=== PATIENT | female | born 1940 | race Caucasian/White ===

== ENCOUNTER 2016-11-13 07:14 | Day surgery (SDC) | payer OTHER ==
--- NOTE | 2016-11-12 11:39 | PREOPHP ---
DATE OF ADMISSION: 11/13/2016 HISTORY OF PRESENT ILLNESS: This 76-year-old patient is admitted for elective cataract surgery of the right eye. The patient has had decreased vision for approximately 2 months time with no prior history of eye disease or injury. The patient does have a positive systemic history of hypertension and has been treated with lisinopril and aspirin (discontinued prior to surgery). ALLERGIES: NO KNOWN ALLERGIES. PHYSICAL EXAMINATION: HEENT: Visual acuity with correction is 20/80 in each eye. 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 Both eyes have evidence of anterior cortical and nucleus sclerotic cataracts with vacuolar changes. Applanation tonometry is 11 mmHg in both eyes. Examination of the retina is within normal limits. DIAGNOSIS: Cataract right eye. PLAN: Cataract extraction with lens implant right eye. The risks and alternatives of the surgery have been discussed with the patient, as well as the hope for improvement of visual acuity leading to greater ability to perform activities of daily living. The patient understands this and agrees to proceed with surgery. Dictated By: Moises Mata MD /tala/asmita /Document#: [id number]
[2016-11-13] VITALS (9 sets, daily range): BP systolic 118–150; BP diastolic 59–70; PULSE 55–65; RESP 13–22; Ht 142.2 cm; Wt 62.0 kg
[~2016-11-13] VITALS: Ht 142.2 cm; Wt 62.0 kg
[~2016-11-13 07:14] MED LIST: ACET1TAB40 PO; ASPI-664 PO; CIPROFLOXACIN 0.3% 2.5 ML OPH OPER SCH; CYCLOPENTOLATE/PHENYLEPH 2 ML OPH OPER SCH; DICLOFENAC 0.1% 2.5 ML OPH OPER SCH; DOCU-159 PO; GABA100C14 PO; IBUP-1542 PO; LISI-313 PO; OMEP40CA6 PO; TROPICAMIDE 1% 3ML OPH OPER SCH
[2016-11-13] MEDS ORDERED: ERGO500037 PO (08:09)
[2016-11-13] MEDS ORDERED: AMO500 PO (08:09)
[2016-11-13] MEDS ORDERED: CARBACHOL 0.01% 1.5 ML OPH INJ IO ONE (09:00)
[2016-11-13] MEDS ORDERED: LIDOCAINE 4% (MPF) 5 ML INJ ONE ×2 (09:09→09:16)
[2016-11-13] MEDS ORDERED: CEFAZOLIN 1 GM INJ ONE (09:09)
[2016-11-13] MEDS ORDERED: EPINEPHrine 1 MG INJ ONE (09:10)
[2016-11-13] MEDS ORDERED: NA HYALURONATE/CHONDROITIN 0.5 ML SYG ONE (09:10)
[2016-11-13] MEDS ORDERED: GENTAMICIN 80 MG INJ ONE (09:10)
[2016-11-13] MEDS ORDERED: CARBACHOL 0.01% 1.5 ML OPH INJ ONE (09:10)
[2016-11-13] MEDS ORDERED: DEXAMETHASONE 4 MG/ML 1 ML INJ ONE (09:10)
[2016-11-13] MEDS ORDERED: NA HYALURONATE/CHONDROITIN 0.5 ML SYG RIGHT EYE ONE (09:20)
[2016-11-13] MEDS ORDERED: CEFAZOLIN 1 GM INJ INJ ONE (09:20)
[2016-11-13] MEDS ORDERED: DEXAMETHASONE 4 MG/ML 1 ML INJ INJ ONE (09:20)
[2016-11-13] MEDS ORDERED: PROPOFOL 20 ML ONE (09:26)
--- NOTE | 2016-11-13 10:04 | SIPON ---
Date/Time of Note Date/Time of Note DATE: 11/13/16 TIME: 10:03 Operative Report Preoperative Diagnosis cataract od Postoperative Diagnosis same Operation/Procedure Performed cataract surgery od Surgeon: KAREN ZUÑIGA MD Anesthesia Type: MAC Estimated Blood Loss: none Transfusion Required: no Specimen: none Grafts/Implants posterior chamber lens implant KAREN ZUÑIGA MD Nov 13, 2016 10:04
[2016-11-13] MEDS ORDERED: HYDROmorphONE (0.2 MG/ML) 10ML SYG IV ONE (10:23)
[2016-11-13] MEDS ORDERED: ONDANSETRON 4 MG INJ IV PRN (10:30)
[2016-11-13] MEDS ORDERED: OXYCODONE/ACETAMINOPHEN (5/325) TAB PO PRN (10:30)
[2016-11-13] MEDS ORDERED: HYDROmorphONE (0.2 MG/ML) 10ML SYG IV PRN (10:30)
--- NOTE | 2016-11-13 11:04 | OPR ---
DATE OF OPERATION: 11/13/2016 PREOPERATIVE DIAGNOSIS: Cataract, right eye. POSTOPERATIVE DIAGNOSIS: Cataract, right eye. SURGEON: Moises Mata MD EMERGENCY ROOM DOCTOR: ANESTHESIA: Monitored anesthesia. ANESTHESIOLOGIST: Dr. Vitale OPERATION: Cataract extraction with lens implant, right eye. LENS POWER: 20.0 diopter. Posterior chamber intraocular lens ([employer]ch + Lomb model LI61A0). PROCEDURE: The patient was brought to the operating room and placed on the table with an IV in place and the patient attached to an boiler cleaner. Oxygen was given via face mask. After some intravenous sedation was administered, local anesthesia was given using Xylocaine 2% with epinephrine, mixed with Marcaine 0.5%. This was given in a lid block and retrobulbar injection. The patient was then prepped and draped in the usual sterile manner. A wire lid speculum was inserted between the lids of the right eye. A Superblade was used to enter the anterior chamber at the corneoscleral limbus at the 10:30 o'clock position. A separate incision was made using a 3.0-mm keratome which entered the corneoscleral junction at the 12 o'clock position. Through this 3-mm opening, an irrigating cystotome was introduced into the anterior chamber. The chamber was filled with Viscoat and an anterior capsulotomy was performed. Balanced salt solution was then used for hydrodissection of the lens. A phacoemulsification handpiece was then brought into the field and introduced into the anterior chamber. The lens nucleus was emulsified using a deep groove and cracking the nucleus into quadrants. Following this, each quadrant was aspirated and emulsified at the pupillary margin. After this was completed, the irrigation/aspiration handpiece was brought to the field, introduced into the posterior chamber, and the lens cortical material was removed. When this was completed, additional Viscoat was injected into the anterior and posterior chambers. The 3-mm opening had its internal lips enlarged, and then the posterior chamber intraocular lens measuring 20.2 diopters ([employer]) was then injected into the posterior chamber using the lens injector system. After the leading haptic was introduced into the capsular bag and the lens optic was present in the center of the eye, the injector was removed and the trailing haptic was grasped with non-toothed forceps and introduced into the capsular fold superiorly. A Sinskey hook was then used to rotate the intraocular lens so that the lips were oriented in the horizontal meridian. One #10-0 nylon suture was placed across the wound. Prior to tying, the irrigation/aspiration handpiece was reintroduced into the anterior chamber to remove the Viscoat. Miochol was instilled to constrict the pupil, and then the #10-0 nylon suture was tied. The ends were cut short and then the knot was buried. Then, 0.5 mL of dexamethasone and 0.5 mL of Ancef were injected into the sub-Tenon space in the inferior fornix. Ciloxan drops were then placed on the surface of the eye. The speculum was removed and a patch was applied. The patient then left the operating room in satisfactory condition. Dictated By: Moises Mata MD /tala/jose /Document#: [id number] ANABEL
== END 2016-11-13 11:32 | disposition home or self-care (01) ==
LOC: SDS 07:14
PROVIDERS: ATTEND Ophthalmology
DX: H25.11 Age-related nuclear cataract, right eye (principal); I10 Essential (primary) hypertension
CPT/HCPCS: 66984; J0171; J0690; J1100; J1170; J1580; V2632; Z7512; Z7610

== ENCOUNTER 2017-01-15 06:44 | Day surgery (SDC) | payer OTHER ==
--- NOTE | 2017-01-14 16:15 | PREOPHP ---
DATE OF ADMISSION: 01/15/2017 HISTORY OF PRESENT ILLNESS: This 76-year-old patient is admitted for elective cataract surgery of t he left eye. The patient has had progressive deterioration of vision over the past year's time with out prior history of eye disease or injury. The patient does have a positive systemic history of hy pertension and is being treated with lisinopril and aspirin. The aspirin was discontinued 1 week pr ior to surgery. ALLERGIES: THERE ARE NO KNOWN ALLERGIES. PHYSICAL EXAMINATION: The visual acuity with best correction is 20/40 in the right eye and 20/80 in the left eye. Slit lamp examination reveals anterior cortical and nuclear sclerotic cataract with vacuolar changes in the left eye. The right eye has a posterior chamber intraocular lens in appropr iate position. Examination of the retina is within normal limits. DIAGNOSIS: Cataract, left eye. PLAN: Cataract extraction with lens implant, left eye. The risks and alternatives to the surgery h ave been discussed with the patient as well as the hope for improvement of visual acuity leading to a greater ability to perform activities of daily living. The patient agrees to proceed with surgery . Dictated By: KAREN WOOD/DORIS Conf#: [id number] DID#: [id number]
[2017-01-15] VITALS (8 sets, daily range): BP systolic 140–160; BP diastolic 65–73; PULSE 56–88; RESP 17–36; Ht 144.8 cm; Wt 63.0 kg
[~2017-01-15] VITALS: Ht 144.8 cm; Wt 63.0 kg
[~2017-01-15 06:44] MED LIST changes: -ACET1TAB40 PO; +AMOX500C2 PO; +BROMFENAC SODIUM 1.7 ML OPH DROP OPER SCH; -CIPROFLOXACIN 0.3% 2.5 ML OPH OPER SCH; -DICLOFENAC 0.1% 2.5 ML OPH OPER SCH; -DOCU-159 PO; +ERGO500037 PO; -IBUP-1542 PO; +MOXIFLOXACIN 0.5% 3 ML OPH OPER SCH; -OMEP40CA6 PO; +SOD CHLORIDE 0.9% 1,000 ML IV SCH; +TROPICAMIDE 1% 2 ML OPH OPER SCH; -TROPICAMIDE 1% 3ML OPH OPER SCH
[2017-01-15] MEDS ORDERED: TROPICAMIDE 1% 3 ML OPH OPER SCH (08:00)
[2017-01-15] MEDS ORDERED: ATOR10TA65 PO (08:05)
[2017-01-15] MEDS ORDERED: DEXAMETHASONE 4 MG/ML 1 ML INJ INJ ONE (09:15)
[2017-01-15] MEDS ORDERED: CEFAZOLIN 1 GM INJ INJ ONE (09:15)
[2017-01-15] MEDS ORDERED: CARBACHOL 0.01% 1.5 ML OPH INJ IO ONE (09:15)
[2017-01-15] MEDS ORDERED: EPINEPHrine 1 MG INJ ONE (09:23)
[2017-01-15] MEDS ORDERED: CARBACHOL 0.01% 1.5 ML OPH INJ ONE (09:23)
[2017-01-15] MEDS ORDERED: DEXAMETHASONE 4 MG/ML 1 ML INJ ONE (09:23)
[2017-01-15] MEDS ORDERED: GENTAMICIN 80 MG INJ ONE (09:23)
[2017-01-15] MEDS ORDERED: LIDOCAINE 4% (MPF) 5 ML INJ ONE (09:23)
[2017-01-15] MEDS ORDERED: CEFAZOLIN 1 GM INJ ONE (09:23)
[2017-01-15] MEDS ORDERED: PROPOFOL 20 ML ONE (09:29)
--- NOTE | 2017-01-15 10:10 | SIPON ---
Date/Time of Note Date/Time of Note DATE: 01/15/17 TIME: 10:09 Operative Report Preoperative Diagnosis cataract os Postoperative Diagnosis same Operation/Procedure Performed cataract surgery os Surgeon see signature line broker assistant none Anesthesia: MAC Estimated blood loss: none Transfusion Required none Specimen none Grafts/Implants posterior chamber lens implant os Complications none KAREN ZUÑIGA MD Jan 15, 2017 10:10
--- NOTE | 2017-01-15 10:10 | SIPON ---
Date/Time of Note Date/Time of Note DATE: 01/15/17 TIME: 10:09 Operative Report Preoperative Diagnosis cataract os Postoperative Diagnosis same Operation/Procedure Performed cataract surgery os Surgeon see signature line district administrative assistant none Anesthesia: MAC Estimated blood loss: none Transfusion Required none Specimen none Grafts/Implants posterior chamber lens implant os Complications none KAREN ZUÑIGA MD Jan 15, 2017 10:10
--- NOTE | 2017-01-15 10:10 | SIPON ---
Date/Time of Note Date/Time of Note DATE: 01/15/17 TIME: 10:09 Operative Report Preoperative Diagnosis cataract os Postoperative Diagnosis same Operation/Procedure Performed cataract surgery os Surgeon see signature line assistant manager retail none Anesthesia: MAC Estimated blood loss: none Transfusion Required none Specimen none Grafts/Implants posterior chamber lens implant os Complications none KAREN ZUÑIGA MD Jan 15, 2017 10:10
[2017-01-15] MEDS ORDERED: METOCLOPRAMIDE 10 MG INJ IV PRN (10:30)
[2017-01-15] MEDS ORDERED: EPHEDrine SULFATE 50 MG/5 ML SYG IV PRN (10:30)
[2017-01-15] MEDS ORDERED: MEPERIDINE 25 MG INJ IV PRN (10:30)
[2017-01-15] MEDS ORDERED: hydrALAzine 20 MG INJ IV PRN (10:30)
[2017-01-15] MEDS ORDERED: DIPHENHYDRAMINE 50 MG INJ IV PRN (10:30)
[2017-01-15] MEDS ORDERED: MIDAZOLAM 1 MG/ML 2 ML INJ IV PRN (10:30)
[2017-01-15] MEDS ORDERED: FENTAnyl 50 MCG/ML VIAL IV PRN ×3 (10:30)
[2017-01-15] MEDS ORDERED: ONDANSETRON 4 MG INJ IV PRN (10:30)
[2017-01-15] MEDS ORDERED: LABETALOL HCL 20MG INJ IV PRN (10:30)
[2017-01-15] MEDS ORDERED: OXYCODONE/ACETAMINOPHEN (5/325) TAB PO PRN ×2 (10:30)
--- NOTE | 2017-01-15 11:07 | OPR ---
DATE OF OPERATION: 01/15/2017 PREOPERATIVE DIAGNOSIS: Cataract, left eye. POSTOPERATIVE DIAGNOSIS: Cataract, left eye. OPERATION PERFORMED: Cataract extraction with lens implant, left eye. SURGEON: Karen Mata MD. ANESTHESIA: Monitor anesthesia, Dr. Park. PROCEDURE: The patient was brought to the operating room and placed on the table with an IV in plac e and the patient attached to an surveillance system monitor. Oxygen was given via face mask. After some intravenous sedation was administered, local anesthesia was given using Xylocaine 2% with epinephrine, mixed with Marcaine 0.5%. This was given in a lid block and retrobulbar injection. The patient was then prepped and draped in the usual sterile manner. A wire lid speculum was inserted between the lids of the left eye. A Superblade was used to enter th e anterior chamber at the corneoscleral limbus at the 10:30 o'clock position. A separate incision wa s made using a 3.0-mm keratome which entered the corneoscleral junction at the 12 o'clock position. Through this 3-mm opening, an irrigating cystotome was introduced into the anterior chamber. The renetta mber was filled with Provisc and an anterior capsulotomy was performed. Balanced salt solution was t hen used for hydrodissection of the lens. A phacoemulsification handpiece was then brought into the field and introduced into the anterior chamber. The lens nucleus was emulsified using a deep groove and cracking the nucleus into quadrants. Following this, each quadrant was aspirated and emulsified at the pupillary margin. After this was completed, the irrigation/aspiration handpiece was brought to the field, introduced i nto the posterior chamber, and the lens cortical material was removed. When this was completed, nuvia tional Provisc was injected into the anterior and posterior chambers. The 3-mm opening had its internal lips enlarged, and then the posterior chamber intraocular lens chuckie suring 19.5 diopters ([employer] model LI61A0) was then injected into the posterior chamber using the lens injector system. After the leading haptic was introduced into the capsular b ag and the lens optic was present in the center of the eye, the injector was removed and the trailin g haptic was grasped with non-toothed forceps and introduced into the capsular fold superiorly. A Si nskey hook was then used to rotate the intraocular lens so that the lips were oriented in the horizo ntal meridian. One 10-0 nylon suture was placed across the wound. Prior to tying, the irrigation/aspiration handpiece was reintroduced into the anterior chamber to re move the Provisc. Miochol was instilled to constrict the pupil, and then the 10-0 nylon suture was t ied. The ends were cut short and then the knot was buried. Then, 0.5 mL of dexamethasone and 0.5 mL of Ancef were injected into the sub-Tenon space in the infe rior fornix. Ciloxan drops were then placed on the surface of the eye. The speculum was removed and a patch was applied. The patient then left the operating room in satisfactory condition. Dictated By: KAREN WOOD/DORIS Conf#: [id number] DID#: [id number]
== END 2017-01-15 11:30 | disposition home or self-care (01) ==
LOC: SDS 06:44
PROVIDERS: ATTEND Ophthalmology
DX: H25.12 Age-related nuclear cataract, left eye (principal); I10 Essential (primary) hypertension; E78.5 Hyperlipidemia, unspecified
CPT/HCPCS: 66984; J0171; J0690; J1100; J1580; V2632; Z7512; Z7610

== ENCOUNTER 2018-12-09 07:04 | Day surgery (SDC) | payer OTHER ==
[~2018-12-09] VITALS: Ht 147.3 cm; Wt 62.1 kg
[~2018-12-09 07:04] MED LIST changes: -AMOX500C2 PO; -ASPI-664 PO; +ASPI-817 PO; +ATOR10TA65 PO; -BROMFENAC SODIUM 1.7 ML OPH DROP OPER SCH; -CYCLOPENTOLATE/PHENYLEPH 2 ML OPH OPER SCH; -ERGO500037 PO; -MOXIFLOXACIN 0.5% 3 ML OPH OPER SCH; -SOD CHLORIDE 0.9% 1,000 ML IV SCH; -TROPICAMIDE 1% 2 ML OPH OPER SCH
[2018-12-09 08:04] VITALS: Ht 147.3 cm; Wt 62.1 kg
[2018-12-09 08:24] VITALS: BP 183/74; PULSE 63; RESP 18
[2018-12-09 09:50] VITALS: BP 141/65; PULSE 61; RESP 18
== END 2018-12-09 14:10 | disposition home or self-care (01) ==
LOC: GIL 07:04
PROVIDERS: ATTEND Internal Medicine Gastroenterology
DX: K92.1 Melena (principal); K64.8 Other hemorrhoids; K44.9 Diaphragmatic hernia without obstruction or gangrene; K21.9 Gastro-esophageal reflux disease without esophagitis; K29.60 Other gastritis without bleeding; E78.5 Hyperlipidemia, unspecified; I10 Essential (primary) hypertension; Z79.82 Long term (current) use of aspirin
CPT/HCPCS: 43239; 45380; 88305; 88312; Z7610